=== PATIENT | male | born 1970 | race American Indian/Alaskan Native ===

== ENCOUNTER 2016-07-28 18:42 | Emergency (ER) | payer SELFPAY ==
[2016-07-28 20:20] VITALS: BP 138/87
--- NOTE | 2016-07-28 21:53 | Emergency Department Report ---
HPI - General Chief Complaint: Animal Bite Time Seen by Provider: 07/28/16 21:48 - HPI HPI: 45-year-old -[place] male comes in for concern for a tick bite to his right leg. Patient reports that he went fishing on Tuesday and noticed that he had a tick bite on Tuesday. Was able to pull the small tick out but now is having above the ankle burning sensation in right leg. She took ibuprofen this morning. She declines any pain medication at this time. He denies any fever no chills no joint pain or joint swelling or rash no lesions. ED Past Medical Hx - Past Medical History Previous Medical History?: No - Surgical History Past Surgical History?: No - Social History Smoking Status: Never Smoker Substance Use Type: None - Medications Home Medications: Home Medications Medication Instructions Recorded Confirmed Last Taken Type HYDROcodone/APAP 5-325 [[place] 1 each PO Q6HR PRN #20 tablet 05/15/15 Unknown Rx 5/325] Ibuprofen [Motrin] 600 mg PO Q8H PRN #40 tablet 05/15/15 Unknown Rx Cetirizine HCl [ZyrTEC] 10 mg PO QDAY #30 capsule 03/21/16 Unknown Rx Fluticasone [Flonase] 1 spray NS QDAY #1 bottle 03/21/16 Unknown Rx guaiFENesin/DEXTROMETHORPHAN 1 each PO BID #20 tab.er.12h 03/21/16 Unknown Rx [Mucinex DM ER 600-30 mg TAB] ED Review of Systems ROS: Stated complaint: TICK IN RT LEG Other details as noted in HPI Physical Exam - Physical Exam Vital Signs: Vital Signs 07/28/16 20:12 Temperature 98.4 F Pulse Rate 94 H Respiratory 18 Rate Blood Pressure 138/87 Blood Pressure 138/87 [Left] O2 Sat by Pulse 100 Oximetry Physical Exam: GENERAL: Alert and oriented x3, no apparent distress, Normal Gait, atraumatic. HEAD: Head is normocephalic and a-traumatic. EYES: Extra ocular muscles are intact. Pupils are equal, round, and reactive to light and accommodation. LUNGS: Symetrical with respiration, No wheezing, no rales or crackles, CTAB. HEART: S1, S2 present, regular rate and rhythm without murmur, no rubs, no gallops. ABDOMEN: No organomegaly was noted,Positive bowel sounds, soft, and non- distended. . Nontender to palpation on all Quadrants, NO CVA tenderness. EXTREMITIES/MUSCULOSKELETAL: No cyanosis, clubbing, rash, lesions or edema. Full ROM bilaterally. UE/LE Pulses 2+ bilaterally. LE and UE 5+ strength bilaterally NEUROLOGIC: No focal Deficit, Cranial nerves II through XII are grossly intact. No loss of sensation, No facial droop, Negative rhomberg. PSYCHIATRIC: Mood is congruent with affect, denies suicidal or homicidal ideations. SKIN: Warm and dry, No lesions, No ulceration or induration present, right Achilles area mouth tenderness with minimal erythema. No edematous no drainage pinpoint opening. Patient is able to ambulate without difficulties. No other rashes noted ED Course Vital Signs 07/28/16 20:12 Temperature 98.4 F Pulse Rate 94 H Respiratory 18 Rate Blood Pressure 138/87 Blood Pressure 138/87 [Left] O2 Sat by Pulse 100 Oximetry ED Medical Decision Making - Medical Decision Making Provider evaluated patient discussed with patient that he needs to return to the emergency room if he develops a fever any joint swelling any rashes or any swelling in his hands or feet. Patient can take Tylenol or Motrin for discomfort. Recommended for follow-up to primary care provider in 3-5 days. Critical care attestation.: If time is entered above; I have spent that time in minutes in the direct care of this critically ill patient, excluding procedure time. ED Disposition Clinical Impression: Tick bite Qualifiers: Encounter type: initial encounter Qualified Code(s): W57.XXXA - Bitten or stung by nonvenomous insect and other nonvenomous arthropods, initial encounter Disposition: DISCHARGED TO HOME OR SELFCARE Is pt being admited?: No Does the pt Need Aspirin: No Condition: Stable Additional Instructions: I recommended for you to return to the emergency room if you develop a high fever nausea vomiting joint swelling or rash to his feet and body. You can take [id number] Tylenol or Motrin. Referrals: [facility] [Provider Group] - 3-5 Days [facility] [Provider Group] - 3-5 Days Forms: Work/School Release Form(ED)
== END 2016-07-28 22:12 | disposition home or self-care (01) ==
LOC: ED 18:42
DX: S80.861A Insect bite (nonvenomous), right lower leg, initial encounter (principal); W57.XXXA Bitten or stung by nonvenomous insect and other nonvenomous arthropods, initial encounter; Y93.89 Activity, other specified; Y92.89 Other specified places as the place of occurrence of the external cause; Y99.8 Other external cause status
CPT/HCPCS: 99282

== ENCOUNTER 2016-12-27 17:24 | Emergency (ER) | payer SELFPAY ==
[2016-12-27 20:00] LABS: Basophils % (Auto) 0.4 % (0.0-1.8); Eosinophils % (Auto) 0.7 % (0.0-4.3); Hematocrit 44.2 % (35.5-45.6); Hemoglobin 14.5 gm/dl (11.8-15.2); Mean Corpuscular HGB Conc 33 % (32-34); Mean Corpuscular Hemoglobin 30 pg (28-32); Mean Corpuscular Volume 91 fl (84-94); Platelet Count 222 K/mm3 (140-440); Red Blood Count 4.87 M/mm3 (3.65-5.03); Red Cell Distribution Width 13.6 % (13.2-15.2); White Blood Count 9.9 K/mm3 (4.5-11.0)
[2016-12-27 20:21] LABS: Anion Gap 17 mmol/L; BUN/Creatinine Ratio 13; Blood Urea Nitrogen 16 mg/dL (9-20); Carbon Dioxide 30 mmol/L (22-30); Chloride 102.3 mmol/L (98-107); Glucose 105 mg/dL (75-100); Potassium 5.1 mmol/L (3.6-5.0); Sodium 144 mmol/L (137-145)
[2016-12-27 22:49] LABS: Bilirubin,Urine NEG (Negative); Blood,Urine NEG (Negative); Ketones,Urine NEG (Negative); Leukocyte Esterase,Urine NEG (Negative); Nitrite,Urine NEG (Negative); Protein,Urine <15 mg/dL mg/dL (Negative); Urobilinogen,Urine < 2.0 mg/dL (<2.0)
[2016-12-28 07:52] VITALS: BP 128/86
--- NOTE | 2016-12-28 08:14 | XRay Report ---
Right ankle: Swelling. There is a small joint effusion and there is soft tissue swelling over the lateral malleolus. The joints are intact. No fracture deformity identified. The bones are well-mineralized. Impression: Soft tissue swelling/effusion.
--- NOTE | 2016-12-28 08:53 | Emergency Department Report ---
ED Lower Extremity HPI - General Chief Complaint: Dizziness Stated Complaint: SWOLLEN ANKLE Time Seen by Provider: 12/28/16 07:49 Source: family Mode of arrival: Ambulatory Limitations: No Limitations - History of Present Illness Initial Comments: 46-year-old male who presents emergency Department with complaint of right leg swelling and ankle swelling over the course of last 3 weeks. He states that he' s had this off and on. He denies any obvious injury. No fevers chills. Denies chest pain or shortness of breath. He has complained of some mild lightheadedness off and on. MD Complaint: other (leg edema and lightheadedness) -: Gradual Injury: Leg: Right, Ankle: Right Place: home Severity: moderate Improves With: nothing Worsens With: nothing, weight bearing Associated Symptoms: swelling, ambulatory. denies: numbness, tingling, unable to bear weight, able to partially bear weight - Related Data Previous Rx's Medication Instructions Recorded Last Taken Type HYDROcodone/APAP 5-325 [[place] 1 each PO Q6HR PRN #20 tablet 05/15/15 Unknown Rx 5/325] Ibuprofen [Motrin] 600 mg PO Q8H PRN #40 tablet 05/15/15 Unknown Rx Cetirizine HCl [ZyrTEC] 10 mg PO QDAY #30 capsule 03/21/16 Unknown Rx Fluticasone [Flonase] 1 spray NS QDAY #1 bottle 03/21/16 Unknown Rx guaiFENesin/DEXTROMETHORPHAN 1 each PO BID #20 tab.er.12h 03/21/16 Unknown Rx [Mucinex DM ER 600-30 mg TAB] Allergies Allergy/AdvReac Type Severity Reaction Status Date / Time No Known Allergies Allergy Verified 05/14/15 18:28 ED Review of Systems ROS: Stated complaint: SWOLLEN ANKLE Other details as noted in HPI Constitutional: denies: chills, malaise Respiratory: denies: cough, orthopnea Cardiovascular: denies: chest pain, palpitations Gastrointestinal: denies: abdominal pain, nausea Musculoskeletal: joint swelling. denies: back pain Skin: denies: rash, lesions Neurological: denies: headache, weakness ED Past Medical Hx - Past Medical History Previous Medical History?: No - Surgical History Past Surgical History?: No - Family History Family history: no significant - Social History Smoking Status: Former Smoker Substance Use Type: Alcohol - Medications Home Medications: Home Medications Medication Instructions Recorded Confirmed Last Taken Type HYDROcodone/APAP 5-325 [[place] 1 each PO Q6HR PRN #20 tablet 05/15/15 Unknown Rx 5/325] Ibuprofen [Motrin] 600 mg PO Q8H PRN #40 tablet 05/15/15 Unknown Rx Cetirizine HCl [ZyrTEC] 10 mg PO QDAY #30 capsule 03/21/16 Unknown Rx Fluticasone [Flonase] 1 spray NS QDAY #1 bottle 03/21/16 Unknown Rx guaiFENesin/DEXTROMETHORPHAN 1 each PO BID #20 tab.er.12h 03/21/16 Unknown Rx [Mucinex DM ER 600-30 mg TAB] ED Physical Exam - General Limitations: No Limitations General appearance: alert, in no apparent distress - Head Head exam: Present: atraumatic, normocephalic - Eye Eye exam: Present: normal appearance. Absent: scleral icterus, conjunctival injection - ENT ENT exam: Present: mucous membranes moist - Neck Neck exam: Absent: lymphadenopathy, thyromegaly - Respiratory Respiratory exam: Present: normal lung sounds bilaterally. Absent: respiratory distress, wheezes - Cardiovascular Cardiovascular Exam: Present: regular rate, normal rhythm. Absent: systolic murmur, diastolic murmur, rubs, gallop - Rectal Rectal exam: Present: deferred - Extremities Exam Extremities exam: Present: other (patient's right ankle is swollen with no bony tenderness) - Back Exam Back exam: Present: normal inspection. Absent: CVA tenderness (R), muscle spasm - Neurological Exam Neurological exam: Present: alert, oriented X3 - Psychiatric Psychiatric exam: Present: normal affect, normal mood - Skin Skin exam: Present: warm, dry, intact, normal color. Absent: rash ED Course Vital Signs 12/27/16 12/28/16 12/28/16 19:10 02:06 07:50 Temperature 98.5 F 98.1 F 97.6 F Pulse Rate 94 H 64 58 L Respiratory 18 18 15 Rate Blood Pressure 149/86 138/87 Blood Pressure 128/86 [Left] O2 Sat by Pulse 97 99 100 Oximetry ED Lower Extremity MDM - Lab Data Result diagrams: 12/27/16 19:36 12/27/16 19:36 Laboratory Results - last 24 hr 12/27/16 12/27/1612/27/17 19:36 19:36 Unknown WBC 9.9 RBC 4.87 Hgb 14.5 Hct 44.2 MCV 91 MCH 30 MCHC 33 RDW 13.6 Plt Count 222 Lymph % (Auto) 31.4 [place] % (Auto) 10.1 H Eos % (Auto) 0.7 Baso % (Auto) 0.4 Lymph # 3.1 [place] # 1.0 H Eos # 0.1 Baso # 0.0 Seg Neutrophils % 57.4 Seg Neutrophils # 5.7 Sodium 144 Potassium 5.1 H Chloride 102.3 Carbon Dioxide 30 Anion Gap 17 BUN 16 Creatinine 1.2 Estimated GFR > 60 BUN/Creatinine Ratio 13 Glucose 105 H Calcium 10.0 Troponin T < 0.010 Urine Color Yellow Urine Turbidity Clear Urine pH 5.0 Ur Specific [place] 1.017 Urine Protein <15 mg/dl Urine Glucose (UA) Neg Urine Ketones Neg Urine Blood Neg Urine Nitrite Neg Urine Bilirubin Neg Urine Urobilinogen < 2.0 Ur Leukocyte Esterase Neg Urine WBC (Auto) 3.0 Urine RBC (Auto) 1.0 U Epithel Cells (Auto) < 1.0 - Radiology Data Radiology results: report reviewed, image reviewed - Medical Decision Making Patient is a 46-year-old male here with leg edema. Unclear cause at this point. She has had intermittent leg swelling. Plan to rule out DVT. If negative plan discharge home with instructions to follow-up with primary care. Likely peripheral edema. Ultrasound negative. Plan to discharge the patient home. Portions of this chart were dictated with dictation software. There may be dictation errors contained within this note. Critical care attestation.: If time is entered above; I have spent that time in minutes in the direct care of this critically ill patient, excluding procedure time. ED Disposition Clinical Impression: Peripheral edema Disposition: DC-01 TO HOME OR SELFCARE Is pt being admited?: No Condition: Stable Instructions: Leg Edema (ED) Additional Instructions: Please follow up with her primary care provider. You should elevate your legs every evening. Referrals: PRIMARY CARE, [Primary Care Provider] - 3-5 Days
--- NOTE | 2016-12-29 08:01 | Vascular Lab Report ---
Right Lower Extremity Venous Duplex Study: Reason for Exam: Swelling of the right lower extremity. Comments on the Right: All veins visualized are freely compressible without evidence of internal echogenicity. Flow is spontaneous and phasic throughout. No evidence of acute or chronic thrombus is seen in any of the vessels visualized. Comments on the Left: A limited duplex study was done of the proximal veins of the left lower extremity. All veins visualized are freely compressible without evidence of internal echogenicity. Flow is spontaneous and phasic throughout. No evidence of acute or chronic thrombus is seen in any of the vessels visualized. Impression: No evidence of acute or chronic deep venous thrombosis in the right lower extremity.
== END 2016-12-28 10:16 | disposition home or self-care (01) ==
LOC: ED 17:24
DX: R60.9 Edema, unspecified (principal); R42 Dizziness and giddiness; Z87.891 Personal history of nicotine dependence
CPT/HCPCS: 36415; 80048; 81001; 84484; 85025; 93005; 93010

== ENCOUNTER 2018-12-08 01:33 | Inpatient (IN) | payer SELFPAY ==
[2018-12-08 02:11] LABS: Basophils % (Auto) 0.4 % (0.0-1.8); Eosinophils # (Auto) 0.1 K/mm3 (0.0-0.4); Eosinophils % (Auto) 1.4 % (0.0-4.3); Hematocrit 41.6 % (35.5-45.6); Hemoglobin 14.1 gm/dl (11.8-15.2); Lymphocytes # (Auto) 1.7 K/mm3 (1.2-5.4); Lymphocytes % (Auto) 26.1 % (13.4-35.0); Mean Corpuscular HGB Conc 34 % (32-34); Mean Corpuscular Volume 92 fl (84-94); Monocytes # (Auto) 0.6 K/mm3 (0.0-0.8); Monocytes % (Auto) 8.8 % (0.0-7.3); Platelet Count 211 K/mm3 (140-440); Red Blood Count 4.51 M/mm3 (3.65-5.03); Red Cell Distribution Width 13.5 % (13.2-15.2)
[2018-12-08 02:38] LABS: Alanine Aminotransferase 29 units/L (7-56); Albumin 4.6 g/dL (3.9-5); BUN/Creatinine Ratio 7; Blood Urea Nitrogen 10 mg/dL (9-20); Calcium 9.6 mg/dL (8.4-10.2); Hemolysis Index 12
[2018-12-08 03:19] LABS: Bilirubin,Urine NEG (Negative); Blood,Urine LG (Negative); Color,Urine Yellow (Yellow); Protein,Urine <15 mg/dL mg/dL (Negative); Urobilinogen,Urine < 2.0 mg/dL (<2.0); WBC,Urine < 1.0 /HPF (0.0-6.0)
[2018-12-08] MEDS ORDERED: DILAUDID IV ONE ×3 (06:58→11:05)
--- NOTE | 2018-12-08 07:03 | Emergency Department Report ---
ED Abdominal Pain HPI - General Chief Complaint: Abdominal Pain Stated Complaint: ABDOMINAL/BACK/LEFT SIDE PAIN Time Seen by Provider: 12/08/18 06:55 Source: patient Mode of arrival: Ambulatory Limitations: No Limitations - History of Present Illness Initial Comments: Patient is a 48-year-old male that presents to the ER with complaints of left flank pain. Patient states his left leg pain started approximately 11 PM the night prior. Patient is also complaining of nausea and vomiting. Patient is complaining of difficulty urinating. Patient states she is having left flank pain is radiating to his back and left lower quadrant. Patient denies fever and chills. Patient states the pain is 10 out of 10. Patient states the pain is better with rest and worse with movement. MD Complaint: flank pain -: Sudden Location: L flank Radiation: LLQ Migration to: no migration Severity scale (0 -10): 10 Quality: stabbing Consistency: constant Improves With: rest Worsens With: movement Associated Symptoms: nausea, vomiting. denies: diarrhea, fever, chills, constipation, dysuria, hematemesis, hematochezia, melena, hematuria, anorexia, syncope - Related Data Home Medications Medication Instructions Recorded Confirmed Last Taken No Known Home Medications [No 12/08/18 12/08/18 Unknown Reported Home Medications] Allergies Allergy/AdvReac Type Severity Reaction Status Date / Time No Known Allergies Allergy Verified 05/14/15 18:28 ED Review of Systems ROS: Stated complaint: ABDOMINAL/BACK/LEFT SIDE PAIN Other details as noted in HPI Constitutional: denies: chills, fever Eyes: denies: eye pain, eye discharge, vision change ENT: denies: ear pain, throat pain Respiratory: denies: cough, shortness of breath, wheezing Cardiovascular: denies: chest pain, palpitations Endocrine: no symptoms reported Gastrointestinal: abdominal pain, nausea, vomiting. denies: diarrhea Genitourinary: denies: urgency, dysuria Musculoskeletal: denies: back pain, joint swelling, arthralgia Skin: denies: rash, lesions Neurological: denies: headache, weakness, paresthesias Psychiatric: denies: anxiety, depression Hematological/Lymphatic: denies: easy bleeding, easy bruising ED Past Medical Hx - Past Medical History Previous Medical History?: No - Surgical History Past Surgical History?: No - Family History Family history: no significant - Social History Smoking Status: Current Every Day Smoker Substance Use Type: None - Medications Home Medications: Home Medications Medication Instructions Recorded Confirmed Last Taken Type No Known Home Medications [No 12/08/18 12/08/18 Unknown History Reported Home Medications] ED Physical Exam - General Limitations: No Limitations General appearance: alert, in no apparent distress - Head Head exam: Present: atraumatic, normocephalic - Eye Eye exam: Present: normal appearance - ENT ENT exam: Present: mucous membranes moist - Neck Neck exam: Present: normal inspection - Respiratory Respiratory exam: Present: normal lung sounds bilaterally. Absent: respiratory distress - Cardiovascular Cardiovascular Exam: Present: regular rate, normal rhythm. Absent: systolic murmur, diastolic murmur, rubs, gallop - GI/Abdominal GI/Abdominal exam: Present: soft, tenderness (left lower quadrant tenderness and left flank tenderness), normal bowel sounds - Rectal Rectal exam: Present: deferred - Extremities Exam Extremities exam: Present: normal inspection - Back Exam Back exam: Present: normal inspection - Neurological Exam Neurological exam: Present: alert, oriented X3 - Psychiatric Psychiatric exam: Present: normal affect, normal mood - Skin Skin exam: Present: warm, dry, intact, normal color. Absent: rash ED Course Vital Signs 12/08/18 12/08/18 12/08/18 01:42 06:22 06:24 Temperature 99.0 F 98.8 F Pulse Rate 90 71 Respiratory 18 18 Rate Blood Pressure 166/101 Blood Pressure 178/90 [Left] O2 Sat by Pulse 96 98 97 Oximetry 12/08/18 12/08/18 12/08/18 07:00 07:30 10:00 Temperature 98.4 F Pulse Rate Respiratory Rate Blood Pressure 173/106 141/85 Blood Pressure [Left] O2 Sat by Pulse 98 94 Oximetry - Reevaluation(s) Reevaluation #1: Indigo evaluation done. Patient will be given pain medications. Patient while the CT scan done. 12/08/18 07:10 Reevaluation #2: Patient is still complaining of significant pain. Patient will be given fluids, antibiotics and more pain medications. 12/08/18 09:04 Reevaluation #3: I discussed all results with patient. Patient will be admitted to the hospital service. Patient agrees with plan of care. 12/08/18 10:34 Reevaluation #4: Patient is complaining of severe abdominal pain. Patient will be given another Dilaudid. Patient will be admitted to the hospitalist service. 12/08/18 11:05 - Consultations Consultation #1: Urology paged 12/08/18 09:[address] Dobbins, urology and he recommends antibiotics and pain management. 12/08/18 11:35 Consultation #2: Hospitalist consult for admission. Hospitalist to admit patient. Bridge orders placed 12/08/18 10:34 ED Medical Decision Making - Lab Data Result diagrams: 12/08/18 01:46 12/08/18 01:46 - Radiology Data Radiology results: report reviewed CT ABDOMEN AND PELVIS WITHOUT AND WITH CONTRAST INDICATION / CLINICAL INFORMATION: left flank pain and llq pain. TECHNIQUE: Axial CT images were obtained through the abdomen and pelvis before and after 100 mL Omnipaque [address] scans at this location are performed using CT dose reduction for ALARA by means of automated exposure control. COMPARISON: None available. FINDINGS: LOWER CHEST: Mild dependent subsegmental atelectasis. LIVER: Hepatic steatosis. Focal hyperattenuation adjacent to the gallbladder likely represents an area of focal fat sparing. GALLBLADDER: No significant abnormality. BILE DUCTS: No significant abnormality. PANCREAS: No significant abnormality. SPLEEN: No significant abnormality. ADRENALS: No significant abnormality. RIGHT KIDNEY and URETER: No significant abnormality. LEFT KIDNEY and URETER: There is a 4 mm stone in the distal left ureter in the region of the ureterovesical junction resulting in upstream mild left hydroureteronephrosis and extensive left periureteric and perinephric stranding, with a small amount of left perinephric fluid and strandy change also seen within the left anterior pararenal space. There is a slightly delayed nephrogram of the left kidney (corticomedullary phase) compared with the right kidney (nephrographic phase). STOMACH and SMALL BOWEL: Small hiatal hernia. Otherwise unremarkable. COLON: No significant abnormality. APPENDIX: No significant abnormality. PERITONEUM: No free fluid. No free air. No fluid collection. LYMPH NODES: No significant adenopathy. AORTA and ARTERIES: No significant abnormality. IVC and VEINS: No significant abnormality. URINARY BLADDER: No significant abnormality. REPRODUCTIVE ORGANS: No significant abnormality. ADDITIONAL FINDINGS: Small fat-containing umbilical and supraumbilical ventral hernia. SKELETAL SYSTEM: No significant abnormality. IMPRESSION: 1. Left ureterovesical junction stone resulting in mild left hydroureteronephrosis but extensive left perinephric and periureteric stranding as well as a delayed left nephrogram. The extent of stranding suggests the possibility of associated forniceal rupture. 2. Hepatic steatosis. - Medical Decision Making Patient is a 48-year-old male that presents emergency room with left flank pain. Patient found to have pyelonephritis and kidney stone. Patient placed on antibiotics and given fluids and pain medications in ER. Patient's labs essentially unremarkable except for hematuria. Patient admitted to the hospital service. Urology consult. - Differential Diagnosis flank pain. Rectal pain. Pyelonephritis. UTI. Kidney stone. Critical Care Time: Yes Critical care attestation.: If time is entered above; I have spent that time in minutes in the direct care of this critically ill patient, excluding procedure time. Critical Care Time: 35 minutes ED Disposition Clinical Impression: Pyelonephritis, Kidney stone on left side, Flank pain, acute, Intractable abdominal pain Disposition: 09 OP ADMIT IP TO THIS HOSP Is pt being admited?: Yes Does the pt Need Aspirin: No Condition: Critical Time of Disposition: 10:33
--- NOTE | 2018-12-08 08:31 | Cat Scan Report ---
CT ABDOMEN AND PELVIS WITHOUT AND WITH CONTRAST INDICATION / CLINICAL INFORMATION: left flank pain and llq pain. TECHNIQUE: Axial CT images were obtained through the abdomen and pelvis before and after 100 mL Omnipaque [address] scans at this location are performed using CT dose reduction for ALARA by means of automated exposure control. COMPARISON: None available. FINDINGS: LOWER CHEST: Mild dependent subsegmental atelectasis. LIVER: Hepatic steatosis. Focal hyperattenuation adjacent to the gallbladder likely represents an are a of focal fat sparing. GALLBLADDER: No significant abnormality. BILE DUCTS: No significant abnormality. PANCREAS: No significant abnormality. SPLEEN: No significant abnormality. ADRENALS: No significant abnormality. RIGHT KIDNEY and URETER: No significant abnormality. LEFT KIDNEY and URETER: There is a 4 mm stone in the distal left ureter in the region of the ureterov esical junction resulting in upstream mild left hydroureteronephrosis and extensive left periureteric and perinephric stranding, with a small amount of left perinephric fluid and strandy change also see n within the left anterior pararenal space. There is a slightly delayed nephrogram of the left kidney (corticomedullary phase) compared with the right kidney (nephrographic phase). STOMACH and SMALL BOWEL: Small hiatal hernia. Otherwise unremarkable. COLON: No significant abnormality. APPENDIX: No significant abnormality. PERITONEUM: No free fluid. No free air. No fluid collection. LYMPH NODES: No significant adenopathy. AORTA and ARTERIES: No significant abnormality. IVC and VEINS: No significant abnormality. URINARY BLADDER: No significant abnormality. REPRODUCTIVE ORGANS: No significant abnormality. ADDITIONAL FINDINGS: Small fat-containing umbilical and supraumbilical ventral hernia. SKELETAL SYSTEM: No significant abnormality. IMPRESSION: 1. Left ureterovesical junction stone resulting in mild left hydroureteronephrosis but extensive left perinephric and periureteric stranding as well as a delayed left nephrogram. The extent of stranding suggests the possibility of associated forniceal rupture. 2. Hepatic steatosis. Signer Name: Cathi Ro MD Signed: 12/08/2018 8:27 AM Workstation Name: [id number]
[2018-12-08] MEDS ORDERED: MAXIPIME/NS 2 GM/100 ML 2 GM/100 ML BAG IV ONE (09:44)
[2018-12-08] MEDS ORDERED: NACL 0.9% 1000 ML 1,000 ML IV ONE (09:44)
--- NOTE | 2018-12-08 11:52 | Progress Note ---
Assessment and Plan Assessment and plan: Acute pyelonephritis Admit Levaquin iv Left renal stone. Urology to see Noemy ruiz prn Hospitalist Physical - Physical exam Narrative exam: Gen: In mild distress from pain, obese HEENT: Normocephalic, atraumatic Neck: supple, no JVD Heart: S1 and S2 reg, no murmurs, rubs or gallop Lungs: Clear to auscultation, no rhonchi, no wheeze Abd: soft, tender left flank, no rebound tenderness, non distended, normal BS, Ext: No edema, no clubbing, no cyanosis Neuro: Awake, alert, oriented X 3, no focal neurological signs - Constitutional Vitals: Temp Pulse Resp BP Pulse Ox 98.4 F 71 18 141/85 94 12/08/18 07:30 12/08/18 06:24 12/08/18 06:24 12/08/18 10:00 12/08/18 10:00 Results - Labs CBC & Chem 7: 12/08/18 01:46 12/08/18 01:46 Labs: Laboratory Last Values WBC 6.4 K/mm3 (4.5-11.0) 12/08/18 01:46 RBC 4.51 M/mm3 (3.65-5.03) 12/08/18 01:46 Hgb 14.1 gm/dl (11.8-15.2) 12/08/18 01:46 Hct 41.6 % (35.5-45.6) 12/08/18 01:46 MCV 92 fl (84-94) 12/08/18 01:46 MCH 31 pg (28-32) 12/08/18 01:46 MCHC 34 % (32-34) 12/08/18 01:46 RDW 13.5 % (13.2-15.2) 12/08/18 01:46 Plt Count 211 K/mm3 (140-440) 12/08/18 01:46 Lymph % (Auto) 26.1 % (13.4-35.0) 12/08/18 01:46 [place] % (Auto) 8.8 % (0.0-7.3) H 12/08/18 01:46 Eos % (Auto) 1.4 % (0.0-4.3) 12/08/18 01:46 Baso % (Auto) 0.4 % (0.0-1.8) 12/08/18 01:46 Lymph # 1.7 K/mm3 (1.2-5.4) 12/08/18 01:46 [place] # 0.6 K/mm3 (0.0-0.8) 12/08/18 01:46 Eos # 0.1 K/mm3 (0.0-0.4) 12/08/18 01:46 Baso # 0.0 K/mm3 (0.0-0.1) 12/08/18 01:46 Seg Neutrophils % 63.3 % (40.0-70.0) 12/08/18 01:46 Seg Neutrophils # 4.0 K/mm3 (1.8-7.7) 12/08/18 01:46 Sodium 140 mmol/L (137-145) 12/08/18 01:46 Potassium 4.3 mmol/L (3.6-5.0) 12/08/18 01:46 Chloride 99.8 mmol/L (98-107) 12/08/18 01:46 Carbon Dioxide 23 mmol/L (22-30) 12/08/18 01:46 22 mmol/L 12/08/18 01:46 BUN 10 mg/dL (9-20) 12/08/18 01:46 1.4 mg/dL (0.8-1.5) 12/08/18 01:46 Estimated GFR > 60 ml/min 12/08/18 01:46 7 % 12/08/18 01:46 Glucose 120 mg/dL (75-100) H 12/08/18 01:46 Calcium 9.6 mg/dL (8.4-10.2) 12/08/18 01:46 0.30 mg/dL (0.1-1.2) 12/08/18 01:46 AST 58 units/L (5-40) H 12/08/18 01:46 ALT 29 units/L (7-56) 12/08/18 01:46 61 units/L (35-129) 12/08/18 01:46 7.9 g/dL (6.3-8.2) 12/08/18 01:46 4.6 g/dL (3.9-5) 12/08/18 01:46 1.4 % 12/08/18 01:46 Yellow (Yellow) 12/08/18 02:00 Cloudy (Clear) 12/08/18 02:00 5.0 (5.0-7.0) 12/08/18 02:00 Ur Specific [place] 1.020 (1.003-1.030) 12/08/18 02:00 <15 mg/dl mg/dL (Negative) 12/08/18 02:00 Neg mg/dL (Negative) 12/08/18 02:00 Neg mg/dL (Negative) 12/08/18 02:00 Lg (Negative) 12/08/18 02:00 Neg (Negative) 12/08/18 02:00 Neg (Negative) 12/08/18 02:00 < 2.0 mg/dL (<2.0) 12/08/18 02:00 Ur Leukocyte Esterase Neg (Negative) 12/08/18 02:00 < 1.0 /HPF (0.0-6.0) 12/08/18 02:00 78.0 /HPF (0.0-6.0) 12/08/18 02:00 U Epithel Cells (Auto) 1.0 /HPF (0-13.0) 12/08/18 02:00
[2018-12-08] MEDS ORDERED: ZOFRAN IV PRN ×2 (12:06→16:29)
[2018-12-08] MEDS ORDERED: TYLENOL PO PRN (12:06)
[2018-12-08] MEDS ORDERED: SODIUM CHLORIDE FLUSH SYRINGE 10 ML IV PRN (12:06)
[2018-12-08] MEDS: D5/0.45NS 1,000 ML IV SCH (12:54)
[2018-12-08] MEDS: LEVAQUIN 750MG/150ML 750 MG/150 ML BAG IV SCH (13:02)
[2018-12-08] MEDS: DILAUDID IV PRN ×2 (13:03→21:56)
--- NOTE | 2018-12-08 13:12 | Consultation ---
History of Present Illness - Reason for Consult Consult date: 12/08/18 - History of Present Illness new to our service Patient is a 48-year-old male that presents to the ER with complaints of left flank pain. Patient states his left leg pain started approximately 11 PM the night prior. Patient is also complaining of nausea and vomiting. Patient is complaining of difficulty urinating. Patient states she is having left flank pain is radiating to his back and left lower quadrant. Patient denies fever and chills. Patient states the pain is 10 out of 10. Patient states the pain is b yue with rest and worse with movement. female family at bedside no previous gu hx CTAP-- Left ureterovesical junction stone resulting in mild left hydroureteronephrosis but extensive left perinephric and periureteric stranding as well as a delayed left nephrogram. The extent of stranding suggests the possibility of associated forniceal rupture. ABD SOFT LEFT FLANK TENDERNESS A/P left distal 4mm stone with colic npo discussed ureteroscopy-- brochure info given Medications and Allergies Allergies Allergy/AdvReac Type Severity Reaction Status Date / Time No Known Allergies Allergy Verified 05/14/15 18:28 Home Medications Medication Instructions Recorded Confirmed Last Taken Type No Known Home Medications [No 12/08/18 12/08/18 Unknown History Reported Home Medications] Active Meds: Active Medications Acetaminophen (Tylenol) 650 mg PO Q4H PRN PRN Reason: Pain MILD(1-3)/Fever >100.5/FELIX Famotidine (Pepcid) 20 mg IV BID ALEXIS Hydromorphone HCl (Dilaudid) 1 mg IV Q4H PRN PRN Reason: Pain , Severe (7-10) Last Admin: 12/08/18 13:03 Dose: 1 mg Documented by: Dextrose/Sodium Chloride (D5/0.45ns) 1,000 mls @ 75 mls/hr IV DIRECT ALEXIS Last Admin: 12/08/18 12:54 Dose: 75 mls/hr Documented by: Levofloxacin/Dextrose (Levaquin 750mg/150ml) 750 mg in 150 mls @ 100 mls/hr IV Q24HR ALEXIS; Protocol Last Admin: 12/08/18 13:02 Dose: 100 mls/hr Documented by: Ondansetron HCl (Zofran) 4 mg IV Q8H PRN PRN Reason: Nausea And Vomiting Sodium Chloride (Sodium Chloride Flush Syringe 10 Ml) 10 ml IV BID ALEXIS Sodium Chloride (Sodium Chloride Flush Syringe 10 Ml) 10 ml IV PRN PRN PRN Reason: LINE FLUSH Exam - Constitutional Vitals: Temp Pulse Resp BP Pulse Ox 98.3 F 66 20 157/87 96 12/08/18 12:07 12/08/18 12:07 12/08/18 12:07 12/08/18 12:07 12/08/18 12:07 Results - Labs CBC & Chem 7: 12/08/18 01:46 12/08/18 01:46 Labs: Abnormal lab results 12/08/18 12/08/18 Range/Units 01:46 01:46 [place] % (Auto) 8.8 H (0.0-7.3) % Glucose 120 H (75-100) mg/dL AST 58 H (5-40) units/L
[2018-12-08] MEDS: PEPCID IV SCH ×2 (15:54→21:51)
--- NOTE | 2018-12-08 15:56 | Anesthesia Consultation ---
Anesthesia Consult and Med Hx Date of service: 12/08/18 - Airway Anesthetic Teeth Evaluation: Good ROM Head & Neck: Adequate Mental/Hyoid Distance: Adequate Mallampati Class: Class II Intubation Access Assessment: Good - Pre-Operative Health Status ASA Pre-Surgery Classification: ASA2 Proposed Anesthetic Plan: General - Pulmonary Hx Smoking: No Hx Asthma: No Hx Respiratory Symptoms: No SOB: No COPD: No Home Oxygen Therapy: No Hx Pneumonia: No Hx Sleep Apnea: Yes - Cardiovascular System Hx Hypertension: No Hx Coronary Artery Disease: No Hx Heart Attack/AMI: No Hx Angina: No Hx Percutaneous Transluminal Coronary Angioplasty (PTCA): No Hx Cardia Arrhythmia: No Hx Pacemaker: No Hx Internal Defibrillator: No Hx Valvular Heart Disease: No Hx Heart Murmur: No Hx Peripheral Vascular Disease: No - Central Nervous System Hx Neuromuscular Disorder: No Hx Seizures: No CVA: No Hx Back Pain: No Hx Psychiatric Problems: No - Gastrointestinal Hx Ulcer: No Hx Gastroesophageal Reflux Disease: No - Endocrine Hx Renal Disease: No Hx End Stage Renal Disease: No Hx Cirrhosis: No Hx Liver Disease: No Hx Insulin Dependent Diabetes: No Hx Non-Insulin Dependent Diabetes: No Hx Thyroid Disease: No Hx Hypothyroidism: No Hx Hyperthyroidism: No - Hematic Hx Anemia: No Hx Sickle Cell Disease: No - Other Systems Hx Alcohol Use: Yes Hx Substance Use: No Hx Cancer: No Hx Obesity: Yes
--- NOTE | 2018-12-08 15:57 | Anesthesia Day of Surgery ---
Anesthesia Day of Surgery - Day of Surgery Patient Examined: Yes Patient H&P Reviewed: Yes Patient is NPO: Yes Beta Blockers: No
[2018-12-08] MEDS ORDERED: DIPRIVAN 10 MG/ML IV ONE (16:12)
[2018-12-08] MEDS ORDERED: DECADRON ONE (16:15)
[2018-12-08] MEDS ORDERED: XYLOCAINE MPF 2% ONE (16:15)
[2018-12-08] MEDS ORDERED: SUBLIMAZE ONE (16:15)
[2018-12-08] MEDS ORDERED: ZOFRAN ONE (16:15)
--- NOTE | 2018-12-08 16:15 | History and Physical Report ---
History of Present Illness Date of examination: 12/08/18 Date of admission: 12/08/18 10:41 Medications and Allergies Allergies Allergy/AdvReac Type Severity Reaction Status Date / Time No Known Allergies Allergy Verified 05/14/15 18:28 Home Medications Medication Instructions Recorded Confirmed Last Taken Type No Known Home Medications [No 12/08/18 12/08/18 Unknown History Reported Home Medications] Active Meds: Active Medications Acetaminophen (Tylenol) 650 mg PO Q4H PRN PRN Reason: Pain MILD(1-3)/Fever >100.5/FELIX Famotidine (Pepcid) 20 mg IV BID ALEXIS Last Admin: 12/08/18 15:54 Dose: Not Given Documented by: Hydromorphone HCl (Dilaudid) 1 mg IV Q4H PRN PRN Reason: Pain , Severe (7-10) Last Admin: 12/08/18 13:03 Dose: 1 mg Documented by: Dextrose/Sodium Chloride (D5/0.45ns) 1,000 mls @ 75 mls/hr IV DIRECT ALEXIS Last Admin: 12/08/18 12:54 Dose: 75 mls/hr Documented by: Levofloxacin/Dextrose (Levaquin 750mg/150ml) 750 mg in 150 mls @ 100 mls/hr IV Q24HR ALEXIS; Protocol Last Admin: 12/08/18 13:02 Dose: 100 mls/hr Documented by: Ondansetron HCl (Zofran) 4 mg IV Q8H PRN PRN Reason: Nausea And Vomiting Sodium Chloride (Sodium Chloride Flush Syringe 10 Ml) 10 ml IV BID ALEXIS Sodium Chloride (Sodium Chloride Flush Syringe 10 Ml) 10 ml IV PRN PRN PRN Reason: LINE FLUSH Exam - Physical Exam Narrative exam: Gen: In mild distress from pain, obese HEENT: Normocephalic, atraumatic Neck: supple, no JVD Heart: S1 and S2 reg, no murmurs, rubs or gallop Lungs: Clear to auscultation, no rhonchi, no wheeze Abd: soft, tender left flank, no rebound tenderness, non distended, normal BS, Ext: No edema, no clubbing, no cyanosis Neuro: Awake, alert, oriented X 3, no focal neurological signs - Constitutional Vitals: Temp Pulse Resp BP Pulse Ox 98.3 F 66 20 157/87 96 12/08/18 12:07 12/08/18 12:07 12/08/18 12:07 12/08/18 12:07 12/08/18 12:07 Results - Labs CBC & Chem 7: 12/08/18 01:46 12/08/18 01:46 Labs: Abnormal lab results 12/08/18 12/08/18 Range/Units 01:46 01:46 [place] % (Auto) 8.8 H (0.0-7.3) % Glucose 120 H (75-100) mg/dL AST 58 H (5-40) units/L Assessment and Plan Acute pyelonephritis Admit Levaquin iv Left renal stone. Urology to see Dilaudid iv prn
[2018-12-08] MEDS ORDERED: DILAUDID IV PRN (16:29)
[2018-12-08] MEDS ORDERED: SUBLIMAZE IV PRN (16:29)
[2018-12-08] MEDS ORDERED: OMNIPAQUE 300 MG/50 ML (CATH LAB) IV ONE (16:35)
--- NOTE | 2018-12-08 17:03 | Post Operative Note ---
Date of procedure: 12/08/18 Pre-op diagnosis: left ureteral stone Post-op diagnosis: same Procedure: left ureteroscopy, stone extraction, stent with external string Anesthesia: KONSTANTIN Surgeon: MARGARET HOBSON Estimated blood loss: minimal Condition: stable Disposition: PACU (bactrim,ultram,norco,post op info on chart)
[2018-12-08] MEDS ORDERED: NORMODYNE IV ONE ×2 (17:10→17:12)
--- NOTE | 2018-12-08 17:35 | Operative Report ---
PREOPERATIVE DIAGNOSIS: Left distal ureteral stone, 4 mm. POSTOPERATIVE DIAGNOSIS: Left distal ureteral stone, 4 mm. PROCEDURE: Cystoscopy, bilateral retrograde pyelograms, left rigid ureteroscopy, basket stone extraction, double-J stent placement with an external string (6-Arabic 28 cm). SURGEON: Mina Johnson MD ANESTHESIA: General. ESTIMATED BLOOD LOSS: Minimal. FLUIDS: Crystalloid. COMPLICATIONS: No complications. INDICATIONS: This 48-year-old gentleman presented to the Emergency Room in severe left flank pain. CT of abdomen and pelvis revealed a 4-mm distal ureteral stone. Pain persisted requiring admission. Discussed options with the patient. He agreed to proceed with surgical intervention. Written information was given. Family was at the bedside. DESCRIPTION OF PROCEDURE: The patient was taken to the operative suite, placed in a supine position. After adequate general anesthesia, placed in a dorsal lithotomy position, prepped and draped in a sterile fashion. Pancystourethroscopy was performed with a 22-Arabic Storz cystoscope, no urethral abnormalities. His prostate displayed some mild trilobar obstruction. His bladder, no tumors or stones were noted. Bilateral retrograde pyelograms were obtained with an 8-Arabic Weber catheter and 8 mL of contrast. No filling defects or obstruction on the right, obvious filling defect in the lower ureter on the left side. Two 0.035 Glidewires were placed up the left ureter. Rigid ureteroscopy was performed. Fragments could be appreciated as well as an obvious stone. It was engaged with a 3-Arabic Zabrina basket and extracted. A 6-Arabic 28 cm double-J stent with an external string was placed under fluoroscopic guidance. Bladder was drained. Rectal exam was benign. He was taken to the recovery room. He will go home on Bactrim, Ultram, and [place]. JOB# [id number] [facility]/KIT
--- NOTE | 2018-12-08 18:27 | Fluoroscopy Report ---
INTRAOPERATIVE FLUOROSCOPY: RETROGRADE UROGRAPHY INDICATION / CLINICAL INFORMATION: LT URETERAL STONE. TECHNIQUE: Intraoperative spot images were obtained during the procedure. FINDINGS: Retrograde injection of the left ureter demonstrates a filling defect in the distal ureter. Retrograde injection of the right ureter demonstrates a normal right ureter and collecting system. Left ureteral stent was left in place at the end of procedure in expected position. Fluoroscopy Time: 0.7 minutes. Fluoroscopy Images: 5. Signer Name: Werner Mendez MD Signed: 12/08/2018 6:23 PM Workstation Name: [id number]
--- NOTE | 2018-12-08 18:36 | Post Anesthesia Evaluation ---
- Post Anesthesia Evaluation Patient Participated: Yes Airway Patent: Yes Stable Respiratory Function: Yes Nausea/Vomiting: No Temp > 96.8F: Yes Pain Manageable: Yes Adequeate Hydration: Yes Anesthesia Complications: No Block Receding Appropriately: Not Applicable Patient on Ventilator: No
[2018-12-08] MEDS: SODIUM CHLORIDE FLUSH SYRINGE 10 ML IV SCH (21:52)
[2018-12-09 05:23] LABS: Basophils % (Auto) 0.2 % (0.0-1.8); Hematocrit 42.4 % (35.5-45.6); Hemoglobin 14.4 gm/dl (11.8-15.2); Lymphocytes # (Auto) 0.9 K/mm3 (1.2-5.4); Lymphocytes % (Auto) 8.6 % (13.4-35.0); Mean Corpuscular HGB Conc 34 % (32-34); Mean Corpuscular Volume 92 fl (84-94); Monocytes # (Auto) 0.7 K/mm3 (0.0-0.8); Platelet Count 218 K/mm3 (140-440); Red Blood Count 4.61 M/mm3 (3.65-5.03); Red Cell Distribution Width 13.7 % (13.2-15.2)
[2018-12-09 05:40] LABS: BUN/Creatinine Ratio 12; Blood Urea Nitrogen 15 mg/dL (9-20); Calcium 9.4 mg/dL (8.4-10.2); Hemolysis Index 9
[2018-12-09] MEDS: D5/0.45NS 1,000 ML IV SCH (05:49)
[2018-12-09] MEDS: LEVAQUIN 750MG/150ML 750 MG/150 ML BAG IV SCH (11:10)
[2018-12-09] MEDS: SODIUM CHLORIDE FLUSH SYRINGE 10 ML IV SCH (11:12)
[2018-12-09] MEDS: PEPCID IV SCH (11:12)
--- NOTE | 2018-12-09 12:44 | Discharge Summary ---
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 2.Follow up with Dr. Johnson in 1 week 3.Take Bactrim, Ultram, norco as prescribed by Dr. Johnson, Urology. Assessment: 1.Left renal system stone Follow up with: PRIMARY CAREMD [Primary Care Provider] - 7 Days
[2018-12-09 14:57] VITALS: BP 135/78
== END 2018-12-09 16:35 | disposition home or self-care (01) | DRG 660 ==
LOC: ED 01:33 → 3A 10:41
PROVIDERS: ADMIT Internal Medicine; ATTEND Internal Medicine
PROC: 0TC78ZZ Extirpation of Matter from Left Ureter, Via Natural or Artificial Opening Endoscopic (ICD-10-PCS; principal; 2018-12-08)
PROC: 0T778DZ Dilation of Left Ureter with Intraluminal Device, Via Natural or Artificial Opening Endoscopic (ICD-10-PCS; 2018-12-08)
PROC: BT141ZZ Fluoroscopy of Kidneys, Ureters and Bladder using Low Osmolar Contrast (ICD-10-PCS; 2018-12-08)
DX: N20.2 Calculus of kidney with calculus of ureter (principal); N10 Acute pyelonephritis; E66.9 Obesity, unspecified; F17.200 Nicotine dependence, unspecified, uncomplicated; Z68.33 Body mass index [BMI] 33.0-33.9, adult
CPT/HCPCS: 36415; 74178; 74420; 80048; 80053; 81001; 85025; 87040; 87086; 96365; 96366; 96375; 96376; 99406; G0378; C1758; C1769; C2617; J0692; J1100; J1170; J1956; J2405; J2704; J3010; J7030; Q9967

== ENCOUNTER 2019-02-15 20:24 | Emergency (ER) | payer SELFPAY ==
[2019-02-15 22:18] VITALS: BP 128/73
--- NOTE | 2019-02-15 22:20 | Event Note ---
ED Screening Note Date of service: 02/15/19 Time: 22:15 ED Screening Note: 48 y o male presents to Ed cc of tingling and radiating pain down his shoulder abd up the neck getting worse, wakes him out of sleep no relief with pain med and topical balm denies trauma or injuries This initial assessment/diagnostic orders/clinical plan/treatment(s) is/are subject to change based on patients health status, clinical progression and re- assessment by fellow clinical providers in the ED. Further treatment and workup at subsequent clinical providers discretion. Patient/guardian urged not to elope from the ED as their condition may be serious if not clinically assessed and managed. Initial orders include: xr r shoulder
--- NOTE | 2019-02-15 22:55 | XRay Report ---
RIGHT SHOULDER 3 VIEWS INDICATION: shoulder pain. COMPARISON: No relevant prior imaging study available. FINDINGS: There is no acute skeletal abnormality. Mild to moderate acromioclavicular degenerative change is not ed. No acute soft tissue findings. IMPRESSION: 1. No acute findings. Signer Name: Ovidio Edmonds MD Signed: 02/15/2019 10:51 PM Workstation Name: [employer]
[2019-02-15] MEDS ORDERED: predniSONE 20 MG TAB PO ONE (23:59)
[2019-02-15] MEDS ORDERED: ACETAMINOPHEN W/CODEINE 300-30 MG TAB PO ONE (23:59)
[2019-02-15] MEDS ORDERED: IBUPROFEN 800 MG TAB PO ONE (23:59)
--- NOTE | 2019-02-16 00:05 | Emergency Department Report ---
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 ED Review of Systems ROS: Stated complaint: RIGHT SHOULDER PAIN Other details as noted in HPI Constitutional: denies: chills, fever Eyes: denies: eye pain, eye discharge, vision change ENT: denies: ear pain, throat pain Respiratory: denies: cough, shortness of breath, wheezing Cardiovascular: denies: chest pain, palpitations Endocrine: no symptoms reported Gastrointestinal: denies: abdominal pain, nausea, vomiting, diarrhea Genitourinary: denies: urgency, dysuria Musculoskeletal: arthralgia, myalgia. denies: back pain, joint swelling Skin: denies: rash, lesions Neurological: denies: headache, weakness, paresthesias Psychiatric: denies: anxiety, depression Hematological/Lymphatic: denies: easy bleeding, easy bruising ED Past Medical Hx - Past Medical History Previous Medical History?: Yes Hx Hypertension: No Hx Heart Attack/AMI: No Hx Congestive Heart Failure: No Hx Liver Disease: No Hx Renal Disease: No Hx Sickle Cell Disease: No Hx Seizures: No Hx Kidney Stones: Yes Hx Asthma: No Hx COPD: No - Surgical History Past Surgical History?: Yes Hx Pacemaker: No Hx Internal Defibrillator: No Additional Surgical History: Kidney stents - Social History Smoking Status: Never Smoker Substance Use Type: None - Medications Home Medications: Home Medications Medication Instructions Recorded Confirmed Last Taken Type Menthol/Camphor [[place] 1 applicatio TP QID PRN #1 tube 02/16/19 Unknown Rx Ointment] Naproxen 500 mg PO HS PRN #30 tablet 02/16/19 Unknown Rx predniSONE [Deltasone] 40 mg PO QDAY 5 Days #10 tab 02/16/19 Unknown Rx Upper Extremity Exam - Exam General: Vital signs noted. No distress. Alert and acting appropriately. Head and Torso: No HEENT Abnormality, No Neck Tenderness, No Chest/Lungs Abnormality, No Abdominal Tenderness, No Back Tenderness Shoulder Exam: Yes Shoulder Tenderness (right posteror shoulder pain ), Yes AC Joint Tenderness, No Clavicle Tenderness, No Normal Range of Motion in Shoulder, No Shoulder Deformity Arm Exam: No Arm/Humerus Tenderness, No Arm Deformity Elbow: Yes Normal Range of Motion in Elbow, No Elbow Tenderness, No Elbow Deformity Forearm: No Forearm Tenderness, No Forearm Deformity, No Pain with Pronation, No Pain with Supination Wrist: Yes Normal ROM in Wrist, No Wrist Tenderness, No Wrist Deformity, No Snuffbox Tenderness, No Pain with Axial Thumb Compression Hand: Yes Normal ROM in Digit(s), No Hand Tenderness, No Hand Deformity, No Digit Tenderness, No Digit(s) Deformity, No Tendon Dysfunction CMS Exam: Yes Normal Distal Pulses, Yes Normal Capillary Refill, Yes Normal Distal Sensation, No Broken Skin ED Course Vital Signs 02/15/19 20:59 Temperature 98.0 F Pulse Rate 79 Respiratory 18 Rate Blood Pressure 128/73 O2 Sat by Pulse 100 Oximetry ED Medical Decision Making - Radiology Data Radiology results: report reviewed, image reviewed Ordering Physician: CARYN HOLCOMB Date of Service: 02/15/19 Procedure(s): XR shoulder 2+V RT Accession Number(s): [id number] cc: CARYN HOLCOMB Fluoro Time In Minutes: RIGHT SHOULDER 3 VIEWS INDICATION: shoulder pain. COMPARISON: No relevant prior imaging study available. FINDINGS: There is no acute skeletal abnormality. Mild to moderate acromioclavicular degenerative change is noted. No acute soft tissue findings. IMPRESSION: 1. No acute findings. Signer Name: Ovidio Edmonds MD Signed: 02/15/2019 10:51 PM Workstation Name: [id number] Transcribed By: ONEIDA Dictated By: Ovidio Edmonds MD Electronically Authenticated By: Ovidio Edmonds MD Signed Date/Time: 02/15/192250 DD/ 49 TD/TT: - Medical Decision Making xray neg for fracture , consistent with degenerative arthralgia, plan, nsaids, analgesic balm moist heat therapy , follow up with orthopedics in 2-3 days , pt verbalized agreement and understanding of discharge plan. Pt dc'd to home in stable condition at this time. Critical care attestation.: If time is entered above; I have spent that time in minutes in the direct care of this critically ill patient, excluding procedure time. ED Disposition Clinical Impression: Right shoulder strain Qualifiers: Encounter type: initial encounter Qualified Code(s): S46.911A - Strain of unspecified muscle, fascia and tendon at shoulder and upper arm level, right arm, initial encounter Arthralgia Qualifiers: Joint pain location: shoulder Laterality: right Qualified Code(s): M25.511 - Pain in right shoulder Disposition: DC-01 TO HOME OR SELFCARE Is pt being admited?: No Does the pt Need Aspirin: No Condition: Stable Instructions: Arthralgia (ED), Shoulder Sprain (ED) Prescriptions: predniSONE [Deltasone] 40 mg PO QDAY 5 Days #10 tab Naproxen 500 mg PO HS PRN #30 tablet PRN Reason: Pain , Severe (7-10) Menthol/Camphor [[place] Ointment] 1 applicatio TP QID PRN #1 tube PRN Reason: Pain , Severe (7-10) Referrals: DAVION ARORA MD [Staff Physician] - 3-5 Days Forms: Work/School Release Form(ED) Time of Disposition: 00:18
== END 2019-02-16 00:30 | disposition home or self-care (01) ==
LOC: ED 20:24
DX: S46.911A Strain of unspecified muscle, fascia and tendon at shoulder and upper arm level, right arm, initial encounter (principal); Z87.442 Personal history of urinary calculi; Z79.899 Other long term (current) drug therapy; W22.8XXA Striking against or struck by other objects, initial encounter; Y93.89 Activity, other specified; Y92.89 Other specified places as the place of occurrence of the external cause; Y99.8 Other external cause status
CPT/HCPCS: 73030; 99283; J7512

== ENCOUNTER 2020-08-25 09:42 | Emergency (ER) | payer SELFPAY ==
[2020-08-25 09:51] VITALS: BP 179/86
--- NOTE | 2020-08-25 11:42 | Emergency Department Report ---
ED General Adult HPI - General Chief complaint: Back Pain/Injury Stated complaint: LOWER BACK/RT HIP PAIN Time Seen by Provider: 08/25/20 11:35 Source: patient Mode of arrival: Ambulatory Limitations: No Limitations - History of Present Illness Initial comments: 49-year-old male patient presents to the emergency department with complaints of nontraumatic right lower back pain radiating to his right hip and right thigh. Patient states the pain has been present "for awhile, but gotten really bad over the last 30 days." He has been taking Aleve with limited relief. He is not currently under the care of a primary care physician. No IV drug use. Patient is not anticoagulated. Denies fever, chills, neck pain, bladder/bowel incontinence, urinary retention, saddle anesthesia, paresthesias, numbness, weakness. Denies all other complaints at this time. - Related Data Previous Rx's Medication Instructions Recorded Last Taken Type Menthol/Camphor [Cucumber Fyffe 1 applicatio TP QID PRN #1 tube 02/16/19 Unknown Rx Ointment] Naproxen 500 mg PO HS PRN #30 tablet 02/16/19 Unknown Rx predniSONE [Deltasone] 40 mg PO QDAY 5 Days #10 tab 02/16/19 Unknown Rx Lidocaine [Lidoderm] 1 each TP BID #20 adh..patch 08/25/20 Unknown Rx Meloxicam [Mobic] 7.5 mg PO QDAY #10 tablet 08/25/20 Unknown Rx Allergies Allergy/AdvReac Type Severity Reaction Status Date / Time No Known Allergies Allergy Verified 08/25/20 09:48 ED Review of Systems ROS: Stated complaint: LOWER BACK/RT HIP PAIN Other details as noted in HPI Other: GENERAL: Negative for fever. CARDIOVASCULAR: Negative for chest pain. PULMONARY: Negative for shortness of breath. GASTROINTESTINAL: Negative for abdominal pain. MUSCULOSKELETAL: Positive for back pain. NEUROLOGICAL: Negative for headache. INTEGUMENTARY: Negative for rash. ED Past Medical Hx - Past Medical History Hx Hypertension: Yes Hx Heart Attack/AMI: No Hx Congestive Heart Failure: No Hx Liver Disease: No Hx Renal Disease: No Hx Sickle Cell Disease: No Hx Seizures: No Hx Kidney Stones: Yes Hx Asthma: No Hx COPD: No Additional medical history: A FIB/ - Surgical History Hx Pacemaker: No Hx Internal Defibrillator: No Additional Surgical History: Kidney stents - Social History Smoking Status: Never Smoker Substance Use Type: None - Medications Home Medications: Home Medications Medication Instructions Recorded Confirmed Last Taken Type Menthol/Camphor [Cucumber Fyffe 1 applicatio TP QID PRN #1 tube 02/16/19 Unknown Rx Ointment] Naproxen 500 mg PO HS PRN #30 tablet 02/16/19 Unknown Rx predniSONE [Deltasone] 40 mg PO QDAY 5 Days #10 tab 02/16/19 Unknown Rx Lidocaine [Lidoderm] 1 each TP BID #20 adh..patch 08/25/20 Unknown Rx Meloxicam [Mobic] 7.5 mg PO QDAY #10 tablet 08/25/20 Unknown Rx ED Physical Exam - General Limitations: No Limitations - Other Other exam information: General: Awake, appropriately interactive, no acute distress. Neck: Supple. Full range of motion intact. Cardiovascular: Normal peripheral perfusion. Pulmonary: No respiratory distress. Patient is speaking normally without use of accessory muscles. Skin: No apparent rashes or lesions. Neurological: No facial asymmetry. Speech is clear. Follows commands. Patient is alert and oriented. Musculoskeletal: Moves all four extremities spontaneously with normal range of motion. Back: Diffuse lumbar tenderness most pronounced along the right paraspinal area without palpable muscle spasm. No step-offs. No saddle anesthesia. Ambulatory without assistance. Straight leg raise is negative. Psych: Cooperative. Appropriate mood and affect. ED Course Vital Signs 08/25/20 09:48 Temperature 99.1 F Pulse Rate 82 Respiratory 20 Rate Blood Pressure 179/86 O2 Sat by Pulse 96 Oximetry ED Medical Decision Making - Medical Decision Making Differential diagnosis including but not limited to: sprain, strain, fracture, contusion, dislocation, disc herniation, cauda equina syndrome, spinal epidural abscess, diskitis The patients back pain is not associated with numbness, tingling, or loss of strength. There is no acute urinary incontinence or retention and no bowel incontinence or retention. There is no saddle anesthesia. The patient is afebrile and neurovascularly intact. No clinical evidence for acute nerve compression (such as cauda equine syndrome) or infection (such as epidural abscess). It has been explained to the patient that advanced imaging such as CT or MRI is not indicated at this time but should be considered if symptoms recur or worsen. Discharged home with appropriate prescriptions and instructions to follow up with primary care provider. Strict return precautions provided. Emph asized the importance of outpatient follow-up and specific signs/symptoms that should warrant immediate return to the emergency department. Patient expressed understanding and was given the opportunity to ask questions, all of which were satisfactorily answered prior to discharge home. Of note, patient's blood pressure was noted to be elevated in the emergency department. Patient has a known history of hypertension. Specifically. he denies chest pain, shortness of breath, palpitations, syncope, headache, vision changes. Neurological exam is nonfocal and remainder of vital signs are stable. No clinical indication for further diagnostic work-up and/or initiation of antihypertensive therapy at this time per ACEP asymptomatic hypertension guidelines. Patient was encouraged to follow-up with primary care provider for blood pressure recheck. Lifestyle modifications recommended. Medication dose adjusted accordingly to account for underlying hypertension. BILLING/CODING: This patient encounter does not represent a certified medical emergency. Critical care attestation.: If time is entered above; I have spent that time in minutes in the direct care of this critically ill patient, excluding procedure time. ED Disposition Clinical Impression: History of hypertension Chronic back pain Qualifiers: Back pain location: low back pain Back pain laterality: right Sciatica presence: unspecified whether sciatica present Qualified Code(s): M54.5 - Low back pain Disposition: DC-01 TO HOME OR SELFCARE Is pt being admited?: No Does the pt Need Aspirin: No Condition: Stable Instructions: Chronic Back Pain, Lbts-mv-Lose Additional Instructions: Take Tylenol every 4 hours as needed for pain. Take Meloxicam with food as directed for pain. Use Lidoderm patches as directed for pain. Apply heat to affected area as needed for pain. Reduce your dietary sodium intake. Exercise daily. Follow-up with primary care provider this week. Call tomorrow to schedule an appointment. See referral information below. Return to the emergency department immediately for new or worsening symptoms. Specifically, return to the emergency department immediately for fever, difficulty walking, difficulty using the bathroom, numbness, weakness, or any other concerns. Prescriptions: Lidocaine [Lidoderm] 1 each TP BID #20 adh..patch Meloxicam [Mobic] 7.5 mg PO QDAY #10 tablet Referrals: EMILI COURTNEY MD [Staff Physician] - 3-5 Days [facility] [Outside] - 3-5 Days [facility] [Outside] - 3-5 Days [facility] [Outside] - 3-5 Days [facility] [Provider Group] - 3-5 Days [facility] [Provider Group] - 3-5 Days Time of Disposition: 11:44
== END 2020-08-25 12:10 | disposition home or self-care (01) ==
LOC: ED 09:42
DX: G89.29 Other chronic pain (principal); M54.5 Low back pain; I10 Essential (primary) hypertension; Z87.442 Personal history of urinary calculi; Z79.899 Other long term (current) drug therapy
CPT/HCPCS: 99282